=== PATIENT | male | born 1955 | race African-American/Black ===

== ENCOUNTER → 2016-09-13 | Outpatient (CLI) | payer BC ==
--- NOTE | 2016-09-13 17:11 | FMS ---
Chest, 2 views, 09/13/2016: History: Cough Comparison is made to a study from 08/29/2016. The heart size and pulmonary vascularity are normal. There is mild linear atelectasis and/or scarring in the left base. No pulmonary consolidation is seen. There is no evidence of pleural fluid. Moderate spurring is present in the spine. IMPRESSION: Mild left basilar linear atelectasis and/or scarring.
== END | disposition home or self-care (01) ==
LOC: FMSRAD 15:17
PROVIDERS: ATTEND Physician Assistant Surgical
DX: J98.11 Atelectasis (principal)
CPT/HCPCS: 71020